=== PATIENT | female | born 1960 | race Caucasian/White ===

== ENCOUNTER 2017-06-11 00:34 | Emergency (ER) | payer SELFPAY ==
[~2017-06-11] VITALS: Ht 157.5 cm; Wt 65.8 kg
--- NOTE | 2017-06-11 01:34 | NUR ---
PT AMBULATORY TO ER BED 9 PT C/O "LT THIGH PAIN RADIAITING TO LLE X1 WEEK"; DENIES TRAUMA. PT AOX3 RR EVEN AND UNLABORED. NO SOB NOTED. NAD NOTED. NO NVD AT THIS TIME. PT NOT DIAPHORETIC. PT GOWNED, WAITING FOR MD CASE.
--- NOTE | 2017-06-11 01:35 | NUR ---
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
--- NOTE | 2017-06-11 02:28 | NUR ---
DR. HARKINS AT BEDSIDE FOR EVAL.
--- NOTE | 2017-06-11 02:36 | NUR ---
Patient discharged to home in stable condition. Written and verbal after care instructions given. Patient verbalizes understanding of instruction. PT ambulatory with a steady gait.
[2017-06-11 02:37] VITALS: BP 128/64
== END 2017-06-11 02:38 | disposition home or self-care (01) ==
LOC: ER 00:34
DX: M54.32 Sciatica, left side (principal); I10 Essential (primary) hypertension
CPT/HCPCS: A4606; Z7610

== ENCOUNTER 2017-06-12 04:57 | Emergency (ER) | payer SELFPAY ==
--- NOTE | 2017-06-12 05:00 | NUR ---
PT A/OX4 BIB DAUGHTER, PT STATES SHE DECIDED NOT TO HAVE EMERGENCY MEDICAL EVALUATION AND STATES SHE IS GOING TO SEE HER PRIMARY MD TODAY INSTEAD, PT AND DAUGHTER WALKED OUT OF THE ER WITH A STEADY GAIT
== END 2017-06-12 05:18 | disposition left against medical advice (07) ==
LOC: ER 04:58
DX: Z53.21 Procedure and treatment not carried out due to patient leaving prior to being seen by health care provider (principal)

== ENCOUNTER 2019-10-06 18:21 | Emergency (ER) | payer SELFPAY ==
[~2019-10-06] VITALS: Ht 152.4 cm; Wt 6.8 kg
[2019-10-06 19:19] LABS: APPEARANCE,URINE Clear (CLEAR); BILIRUBIN,URINE Negative (NEGATIVE); BLOOD, URINE Small Ery/uL (NEGATIVE); COLOR,URINE Yellow (YELLOW); KETONES,URINE Negative (NEGATIVE); LEUKOCYTE ESTERASE ,URINE Trace (NEGATIVE); NITRITE, URINE Negative (NEGATIVE); PH,URINE 6.5 (5.0-8.0); PROTEIN,URINE Negative (NEGATIVE); UGLUCOSE Negative (NEGATIVE); UROBILINOGEN,URINE 0.2 EU/dL (0.2)
[2019-10-06 19:33] LABS: BACTERIA,URINE None seen /HPF (None Seen); SQUAMOUS EPITHELIAL CELL,UR Rare /HPF (None Seen); WBC,URINE 0-2 /HPF (0-3)
--- NOTE | 2019-10-06 19:35 | NUR ---
BIB DAUGHTER FOR C/O ABD PAIN, N/V FOR THE PAST FEW DAYS. - DIARRHEA. LBM:TODAY. W/ FAMILY HX OF GALL BLADDER STONE. VSS.
[2019-10-06] MEDS ORDERED: KETOROLAC TROMETHAMINE 15 MG/ML VIAL ONE (20:18)
[2019-10-06] MEDS ORDERED: LIDOCAINE VISCOUS 2% UD 15 ML UDC ONE (20:18)
[2019-10-06] MEDS ORDERED: ONDANSETRON HCL/PF 4 MG/2 ML VIAL ONE (20:18)
[2019-10-06] MEDS ORDERED: MAG HYDROX/AL HYDROX/SIMETH 30 ML UDC ONE (20:18)
[2019-10-06] MEDS ORDERED: FAMOTIDINE/PF INJ 20 MG/2 ML VIAL IV ONE ×2 (20:18→20:30)
[2019-10-06] MEDS ORDERED: MAG HYDROX/AL HYDROX/SIMETH 30 ML UDC PO ONE (20:30)
[2019-10-06] MEDS ORDERED: ONDANSETRON HCL/PF 4 MG/2 ML VIAL IVP ONE (20:30)
[2019-10-06] MEDS ORDERED: KETOROLAC TROMETHAMINE INJ 30 MG/ML VIAL IV ONE (20:30)
[2019-10-06] MEDS ORDERED: LIDOCAINE VISCOUS 2% UD 15 ML UDC MM ONE (20:30)
[2019-10-06] MEDS ORDERED: IV NS 0.9% 1,000 ML BAG IV ONE (20:30)
[2019-10-06 20:49] LABS: BASOPHILS % (AUTO) 0.4 % (0.0-2.0); EOSINOPHILS % (AUTO) 1.8 % (0.0-6.0); HEMATOCRIT 41 % (33-45); HEMOGLOBIN 13.7 g/dL (11.5-14.8); LYMPHOCYTES # (AUTO) 2.3 /CMM (0.8-4.8); LYMPHOCYTES % (AUTO) 28.3 % (20.0-44.0); MEAN CORPUSCULAR HGB CONC 33 g/dl (31.0-36.0); MEAN CORPUSCULAR VOLUME 92 fL (82-100); MONOCYTES # (AUTO) 0.6 /CMM (0.1-1.30); MONOCYTES % (AUTO) 7.1 % (2.0-12.0); NEUTROPHILS % (AUTO) 62.4 % (43.0-81.0); PLATELET COUNT (AUTO) 242 /CMM (150-450); RED BLOOD CELL COUNT(AUTO) 4.47 MIL/uL (4.0-5.2); WHITE BLOOD COUNT (AUTO) 8.1 K/uL (4.3-11.0)
[2019-10-06 21:06] LABS: ALANINE AMINOTRANSFERASE 135 U/L (12-78); ALBUMIN 3.9 g/dL (3.4-5.0); ALKALINE PHOSPHATASE 165 U/L (46-116); ASPARTATE AMINOTRANSFERASE 81 U/L (15-37); BILIRUBIN,DIRECT 0.1 mg/dL (0.0-0.2); BILIRUBIN,TOTAL 0.3 mg/dL (0.2-1.0); CALCIUM, SERUM 9.1 mg/dL (8.5-10.1); CARBON DIOXIDE 27 mmol/L (21-32); CHLORIDE 105 mmol/L (98-107); CREATININE 0.7 mg/dL (0.6-1.3); GLUCOSE 110 mg/dL (74-106); LIPASE 145 U/L (73-393); POTASSIUM 3.8 mmol/L (3.5-5.1); SODIUM SERUM 141 mmol/L (136-145); TOTAL PROTEIN, SERUM 7.6 g/dL (6.4-8.2); UREA NITROGEN, BLOOD 13 mg/dL (7-18)
[2019-10-06 21:48] VITALS: BP 115/62
--- NOTE | 2019-10-06 21:48 | NUR ---
IV removed. Catheter intact and site benign. Pressure and 4x4 applied to site. No bleeding noted.Patient discharged to home in stable condition. Rx and Written and verbal after care instructions given. Patient verbalizes understanding of instruction.
== END 2019-10-06 21:48 | disposition home or self-care (01) ==
LOC: ER 18:24
DX: K21.9 Gastro-esophageal reflux disease without esophagitis (principal); K29.70 Gastritis, unspecified, without bleeding; R00.8 Other abnormalities of heart beat; I10 Essential (primary) hypertension; Z98.890 Other specified postprocedural states
CPT/HCPCS: 36415; 71045; 80048; 80076; 81001; 83690; 84484; 85025; 93005; 96361; 96374; 96375; 99284; J1885; J2405; J3490; J7030; 81000-TC

== ENCOUNTER 2020-12-13 03:25 | Emergency (ER) | payer MEDICAID ==
[~2020-12-13] VITALS: Ht 160 cm; Wt 67.1 kg
--- NOTE | 2020-12-13 03:27 | NUR ---
PT AAOX4. BIBSELF C/O HIGH BLOOD PRESSURE IN THE 200'S. PT STATED SHE TOOK BENAZEPRIL 20MG PO @8PM, AGAIN AT 8:15, 40MP PO 9:15, AND @2AM. PT STATED SHE DENIES ANY CP, SOB.
--- NOTE | 2020-12-13 03:41 | NUR ---
PT STATING SHE FEELS BETTER, REQUESTING TO GO HOME.
--- NOTE | 2020-12-13 03:51 | NUR ---
PT AMBULATED TO THE RESTROOM
[2020-12-13 04:02] VITALS: BP 152/78
--- NOTE | 2020-12-13 04:10 | NUR ---
PT NOT IN ROOM, PT ELOPED.
== END 2020-12-13 04:11 | disposition home or self-care (01) ==
LOC: ER 03:29
DX: I10 Essential (primary) hypertension (principal); Z53.21 Procedure and treatment not carried out due to patient leaving prior to being seen by health care provider

== ENCOUNTER 2021-11-25 14:14 | Emergency (ER) | payer MEDICAID, OTHER ==
[~2021-11-25] VITALS: Ht 154.9 cm; Wt 72.6 kg
[2021-11-25 14:31] VITALS: BP 143/56
--- NOTE | 2021-11-25 14:31 | NUR ---
"Right Ankle pain" Denies trauma/injury
[2021-11-25] MEDS ORDERED: KETOROLAC TROMETHAMINE INJ 30 MG/ML VIAL IV ONE (15:30)
--- NOTE | 2021-11-25 15:45 | NUR ---
phlebatomist at the bedside
[2021-11-25] MEDS ORDERED: KETOROLAC TROMETHAMINE INJ 30 MG/ML VIAL ONE (15:56)
--- NOTE | 2021-11-25 16:17 | NUR ---
IV ESTABLISHED R FOREARM 22G. LABS DRAWN AND COLLECTED AT BEDSIDE.
[2021-11-25 16:25] LABS: BASOPHILS % (AUTO) 0.5 % (0.0-2.0); EOSINOPHILS % (AUTO) 1.7 % (0.0-6.0); HEMATOCRIT 39 % (33-45); HEMOGLOBIN 13.3 g/dL (11.5-14.8); LYMPHOCYTES # (AUTO) 2.3 K/uL (0.8-4.8); LYMPHOCYTES % (AUTO) 29.4 % (20.0-44.0); MEAN CORPUSCULAR HGB CONC 34 g/dl (31.0-36.0); MEAN CORPUSCULAR VOLUME 89 fL (82-100); MONOCYTES # (AUTO) 0.5 K/uL (0.1-1.30); MONOCYTES % (AUTO) 6.8 % (2.0-12.0); NEUTROPHILS # (AUTO) 4.9 K/uL (1.8-8.9); NEUTROPHILS % (AUTO) 61.6 % (43.0-81.0); PLATELET COUNT (AUTO) 271 K/uL (150-450); RED BLOOD CELL COUNT(AUTO) 4.39 MIL/uL (4.0-5.2); WHITE BLOOD COUNT (AUTO) 7.9 K/uL (4.3-11.0)
[2021-11-25] MEDS ORDERED: NAPR-1009 PO (17:44)
--- NOTE | 2021-11-25 17:54 | NUR ---
Patient discharged to home in stable condition. Written and verbal after care instructions given. Patient verbalizes understanding of instruction.
== END 2021-11-25 17:55 | disposition home or self-care (01) ==
LOC: ER 14:17
DX: M25.471 Effusion, right ankle (principal); I10 Essential (primary) hypertension; Z98.890 Other specified postprocedural states
CPT/HCPCS: 73610; 80048; 85025; 85652; 96374; 99284; J1885